=== PATIENT | female | born 1995 | race Two or more races ===

== ENCOUNTER 2017-08-05 13:33 | Emergency (ER) | payer SELFPAY ==
[~2017-08-05] VITALS: Ht 157.5 cm; Wt 76.9 kg
[2017-08-05 13:53] VITALS: BP 131/78
== END 2017-08-05 18:41 | disposition left against medical advice (07) ==
LOC: EME 13:33
DX: R21 Rash and other nonspecific skin eruption (principal); Z53.21 Procedure and treatment not carried out due to patient leaving prior to being seen by health care provider

== ENCOUNTER 2017-10-02 21:29 | Emergency (ER) | payer OTHER ==
[~2017-10-02] VITALS: Ht 157.5 cm; Wt 76.0 kg
[2017-10-02 22:37] LABS: APPEARANCE TURBID ((CLEAR)); BILIRUBIN NEGATIVE; BLOOD NEGATIVE; COLOR YELLOW ((YELLOW)); GLUCOSE (STRIP) NEGATIVE; KETONES 5; LEUKOCYTES TRACE; NITRITE NEGATIVE; PROTEIN (STRIP) 100; SPECIFIC GRAVITY 1.024 (1.000-1.030)
[2017-10-02 22:53] LABS: AMORPHOUS URATES CRYSTALS 3+; BACTERIA 1+ /HPF; EPITHELIAL CELLS 1+ /HPF; MUCUS 2+ /LPF; RED BLOOD CELLS 0-5 /HPF (0-5); UCUL ADDED? NO; WHITE BLOOD CELLS 0-5 /HPF (0-5)
[2017-10-02 23:32] VITALS: BP 132/94
== END 2017-10-02 23:32 | disposition home or self-care (01) ==
LOC: EME 21:29
PROVIDERS: Physician Assistant
DX: Z32.01 Encounter for pregnancy test, result positive (principal); O99.341 Other mental disorders complicating pregnancy, first trimester; F41.9 Anxiety disorder, unspecified; F32.9 Major depressive disorder, single episode, unspecified; Z88.2 Allergy status to sulfonamides
CPT/HCPCS: 81003; 81025; 87086; 99281; 99283